=== PATIENT | male | born 1945 | race Caucasian/White ===

== ENCOUNTER → 2025-05-13 08:24 | Outpatient (BNVA) | payer OTHER, SELFPAY | PROVIDERS: Visit Provider Nurse Practitioner Family | DX: L57.8 Other skin changes due to chronic exposure to nonionizing radiation (principal); L81.4 Other melanin hyperpigmentation; D22.5 Melanocytic nevi of trunk; L82.1 Other seborrheic keratosis; L30.9 Dermatitis, unspecified; D48.5 Neoplasm of uncertain behavior of skin; L57.0 Actinic keratosis | CPT/HCPCS: 11104; 17000; 99203 ==

== ENCOUNTER 2025-06-17 14:09 | Outpatient (CLI) | payer OTHER, SELFPAY | END 2025-06-17 14:10 | disposition home or self-care (01) | LOC: LAB 14:11 | PROVIDERS: PCP Family Medicine Geriatric Medicine; Visit Provider Nurse Practitioner Family | DX: Z91.014 Allergy to mammalian meats (principal) | CPT/HCPCS: 36415; 86003; 86008 ==